=== PATIENT | male | born 2000 | race Hispanic/Latino ===

== ENCOUNTER 2021-01-26 03:20 | Emergency (ER) | payer OTHER ==
[2021-01-26] MEDS ORDERED: Bacitracin 1 PK ONE (03:51)
[2021-01-26] MEDS ORDERED: Boostrix 0.5 ML (Tdap) VIAL ONE (03:51)
[2021-01-26] MEDS ORDERED: Lidocaine 1% w/Epinephrine 1:100K 20 ML VIAL ONE (03:51)
[2021-01-26] MEDS ORDERED: Cephalexin 250 MG CAP ONE (04:52)
== END 2021-01-26 05:00 | disposition home or self-care (01) ==
LOC: CSHERS 03:20
DX: S66.320A Laceration of extensor muscle, fascia and tendon of right index finger at wrist and hand level, initial encounter (principal); Z23 Encounter for immunization; W22.8XXA Striking against or struck by other objects, initial encounter
CPT/HCPCS: 12001; 90471; 90715